=== PATIENT | female | born 1950 | race Caucasian/White ===

== ENCOUNTER 2016-10-07 07:43 | Emergency (ER) | payer OTHER ==
[~2016-10-07] VITALS: Ht 146.1 cm; Wt 71.7 kg
[~2016-10-07 07:43] MED LIST: ALEN70TA PO; ALPR1TAB2 PO; ENAL20TA46 PO; ESCI20TA PO; GEMF600T6 PO; TEMA30CA23 PO
[2016-10-07 07:50] VITALS: BP 160/88
--- NOTE | 2016-10-07 07:53 | NUR ---
PT TAKEN TO BED 5
--- NOTE | 2016-10-07 07:54 | NUR ---
65F BIB SELF C/O LEFT EYE IRRITATION X LAST NIGHT; PT DENIES VISION LOSS OR PAIN AT THIS TIME TO SITE; DENIES TRAUMA OR INJURY TO LEFT EYE; DENIES MEDICAL HX.DENIES N/V/D; SKIN IS PINK/WARM/DRY; AAOX4 WITH EVEN AND STEADY GAIT; LUNGS CLEAR BL; HR EVEN AND REGULAR; PT DENIES ANY FEVER, CP, SOB, OR COUGH AT THIS TIME; PATIENT STATES PAIN OF 0/10 AT THIS TIME; PATIENT POSITIONED FOR COMFORT; HOB ELEVATED; BEDRAILS UP X2; BED DOWN. ER MD MADE AWARE OF PT STATUS.
--- NOTE | 2016-10-07 08:02 | NUR ---
Dr. Conway evaluating patient at bedside.
[2016-10-07 08:21] VITALS: BP 160/88
--- NOTE | 2016-10-07 08:21 | NUR ---
Patient discharged with BP 139/69, PT DENIES ANY HEADACHE OR DIZZINESS AT THIS TIME; MD AWARE. Written and verbal after care instructions given and explained. Patient alert, oriented and verbalized understanding of instructions. Ambulatory with steady gait. All questions addressed prior to discharge. ID band removed. Patient advised to follow up with PMD. Rx of ERYTHROMYCIN 0.5% OPHTH OINT given. Patient educated on indication of medication including possible reaction and side effects. Opportunity to ask questions provided and answered.
== END 2016-10-07 08:21 | disposition home or self-care (01) ==
LOC: MED 07:43
DX: H00.015 Hordeolum externum left lower eyelid (principal); I10 Essential (primary) hypertension
CPT/HCPCS: 99283

== ENCOUNTER 2018-09-09 11:46 | Emergency (ER) | payer MEDICARE, OTHER ==
[~2018-09-09] VITALS: Ht 160 cm; Wt 65.8 kg
[2018-09-09 11:55] VITALS: BP 151/89
--- NOTE | 2018-09-09 12:17 | NUR ---
PT AMB TO BED 12
--- NOTE | 2018-09-09 12:19 | NUR ---
DAUGHTER AT BEDSIDE.
--- NOTE | 2018-09-09 12:30 | NUR ---
C/O ANXIETY, PER PT THE ANXIETY MEDICATIONS SHE TAKES ARE NOT WORKING FOR HER. PT STATES SHE HAS BEEN FEELING THE "ANXIETY ATTACK" SINCE LAST NIGHT. PT TAKES ALPRAZOLAM,TRAZADONE, ECITALOPRAM, & REMERON.
[2018-09-09] MEDS ORDERED: LORazepam 1 MG TAB PO ONE (12:45)
[2018-09-09 14:00] VITALS: BP 158/82
--- NOTE | 2018-09-09 14:00 | NUR ---
Patient discharged with v/s stable. Written and verbal after care instructions given and explained. Patient alert, oriented and verbalized understanding of instructions. Ambulatory with steady gait. All questions addressed prior to discharge. ID band removed. Patient advised to follow up with PMD. Rx of ATIVAN 0.5MG given. Patient educated on indication of medication including possible reaction and side effects. Opportunity to ask questions provided and answered.
== END 2018-09-09 14:00 | disposition home or self-care (01) ==
LOC: MED 11:46
DX: F41.9 Anxiety disorder, unspecified (principal); F31.9 Bipolar disorder, unspecified; I10 Essential (primary) hypertension; E07.9 Disorder of thyroid, unspecified; E78.00 Pure hypercholesterolemia, unspecified; Z79.899 Other long term (current) drug therapy
CPT/HCPCS: 81002; 99284

== ENCOUNTER 2018-10-17 19:10 | Inpatient (IN) | payer MEDICARE, OTHER ==
[~2018-10-17] VITALS: Ht 154.9 cm; Wt 60.8 kg
[2018-10-17 19:20] VITALS: BP 161/99
--- NOTE | 2018-10-17 19:20 | NUR ---
TO BED # 06 AMBULATORY WITH DAUGHTER
--- NOTE | 2018-10-17 19:42 | NUR ---
DR. ZAYAS EVALUATING PATIENT AT BEDSIDE.
[2018-10-17] MEDS ORDERED: LORazepam 2 MG/ML VIAL IM ONE (19:55)
--- NOTE | 2018-10-17 19:55 | NUR ---
67 Y/O F BIB DAUGHTER FOR SI. AAOX4. PER PT DAUGHTER "SHE NOT HERSELF LATELY. I FOUND HER WITH A CORD AROUND HER NECK. THEN SHE TRIED TO OVERDOSE ON ASPIRIN BUT I WAS ABLE TO TAKE IT FROM HER BEFORE SHE TOOK IT." PT LOST HER MOTHER A YEAR AGO, PT DAUGHTER STATED "SHE'S BEEN GETTING WORSE SINCE MOTHER'S DAY." PT HAS BEEN WITHOUT HER PSYCHIATRIC MEDICATION FOR 1 MONTH. PT STATED "I ALMOST TOOK ALOT OF ASPIRIN. I JUST DONT FEEL RIGHT." PT APPEARS ANXIOUS. DAUGTHER AT BEDSIDE. ERMD NOTIFIED. WILL CONTINUE TO MONITOR.
--- NOTE | 2018-10-17 20:01 | NUR ---
TELEPSYCH REQUEST SENT
--- NOTE | 2018-10-17 20:15 | NUR ---
PT CONTINOUSLY OUT OF BED AND TRYING TO AMBULATE IN THE HALLWAYS. REDIRECTED BACK TO BED.
--- NOTE | 2018-10-17 20:18 | NUR ---
SPOKE WITH DR. ANTONIO, TELEPSYCH TO PROVIDE INFORMATION REGARDING PT STATUS.
[2018-10-17 20:19] LABS: BASOPHILS % (AUTO) 0.1 % (0.0-2.0); EOSINOPHILS % (AUTO) 0.3 % (0.0-4.0); HEMATOCRIT 35.8 % (36-48); HEMOGLOBIN 11.9 g/dL (12.0-16.0); LYMPHOCYTES # (AUTO) 0.7 K/uL (2.5-16.5); LYMPHOCYTES % (AUTO) 8.7 % (20.5-51.1); MEAN CORPUSCULAR HEMOGLOBIN 28 pg (27-31); MEAN CORPUSCULAR HGB CONC 33 g/dL (33-37); MEAN CORPUSCULAR VOLUME 83.7 fL (80-94); MONOCYTES # (AUTO) 0.7 K/uL (0.8-1.0); MONOCYTES % (AUTO) 8.6 % (1.7-9.3); NEUTROPHILS # (AUTO) 6.3 K/uL (1.8-7.7); NEUTROPHILS % (AUTO) 82.3 % (42.2-75.2); PLATELET COUNT (AUTO) 409 K/uL (140-450); RED BLOOD CELL COUNT(AUTO) 4.28 MIL/uL (4.20-5.40); RED CELL DISTRIBUTION WIDTH 14.9 % (11.6-13.7); WHITE BLOOD COUNT (AUTO) 7.7 K/uL (4.8-10.8)
[2018-10-17 20:36] LABS: ANION GAP 13.6 (8-16); CARBON DIOXIDE 26.7 mmol/L (21-32); CHLORIDE 100 mmol/L (98-107); CREATININE 0.9 mg/dL (0.6-1.3); GFR ARICAN-AMERICAN 81 mL/min (>90); GLUCOSE 123 mg/dL (74-106); POTASSIUM 3.3 mmol/L (3.5-5.1); SODIUM SERUM 137 mmol/L (136-145); UREA NITROGEN, BLOOD 11 mg/dL (7-18)
--- NOTE | 2018-10-17 20:38 | NUR ---
SPOKE WITH DR. ANTONIO WHO IS RECOMMMENDING 5150 HOLD, ATIVAN PO 1MG FOR ANXIETY, RESTORIL 30MG PO, AND SEROQUEL 50MG PO FOR INSOMNIA. DR. ZAYAS MADE AWARE OF RECOMMENDATIONS.
[2018-10-17 20:41] LABS: ALBUMIN 3.9 g/dL (3.4-5.0); ASPARTATE AMINOTRANSFERASE 17 U/L (15-37); TOTAL BILIRUBIN 0.3 mg/dL (0.0-1.0)
--- NOTE | 2018-10-17 20:41 | NUR ---
[facility] PORTILLO CALLED TO INITATE 5150 HOLD.
[2018-10-17 20:43] LABS: ACETAMINOPHEN < 0.5 ug/ml (10-30); SALICYLATE < 2.8 mg/dL (2.8-20.0)
[2018-10-17] MEDS ORDERED: ALPRAZolam 0.5 MG TAB PO ONE (20:45)
--- NOTE | 2018-10-17 20:50 | NUR ---
[facility] ARRIVED. AT BEDSIDE WITH PT.
--- NOTE | 2018-10-17 21:00 | NUR ---
PT PLACED ON HOLD. EMT AT BEDSIDE FOR 1:1 MONITIORING. BEDRAILS X2 UP. BED IN LOWEST POSITION. WILL CONTINUE TO MONITOR.
[2018-10-17 21:21] LABS: APPEARANCE,URINE CLEAR (CLEAR); BILIRUBIN,URINE NEGATIVE (NEGATIVE); BLOOD, URINE NEGATIVE (NEGATIVE); COLOR,URINE YELLOW (YELLOW); LEUKOCYTE ESTERASE ,URINE TRACE (NEGATIVE); NITRITE, URINE NEGATIVE (NEGATIVE); UGLUCOSE NEGATIVE (NEGATIVE)
[2018-10-17 21:22] LABS: RBC,URINE 0-5 /HPF (0-5); WBC,URINE 0-5 /HPF (0-5)
[2018-10-17 21:30] LABS: BARBITURATE, URINE NEG. ng/ml (NEG <=200); BENZODIAZEPINE, URINE POS. ng/mL (NEG <=200); CANNABINOID, URINE NEG. ng/mL (NEG <=50); COCAINE, URINE NEG. ng/mL (NEG <=300); OPIATE, URINE NEG. ng/mL (NEG <=2000); PHENCYCLIDINE SCREEN,URINE NEG. ng/mL (NEG <=25)
[2018-10-17] MEDS ORDERED: QUEtiapine FUMARATE 25 MG TAB PO ONE (21:55)
--- NOTE | 2018-10-17 22:00 | NUR ---
PT STATED " CAN I GET SOMETHING TO SLEEP. I CAN'T SLEEP." DR. ZAYAS MADE AWARE.
[2018-10-17] MEDS ORDERED: QUEtiapine FUMARATE 25 MG TAB ONE (22:17)
[2018-10-17] MEDS ORDERED: TEMAZEPAM 15 MG CAP ONE (22:19)
[2018-10-17] MEDS ORDERED: traZODone 50 MG TAB PO ONE (22:35)
--- NOTE | 2018-10-18 00:15 | NUR ---
PT ASLEEP AT THIS TIME. VISIBLE CHEST RISE AND FALL NOTED. EMT AT BEDSIDE FOR 1:1 MONITORING. WILL CONTINUE TO MONITOR.
[2018-10-18] MEDS ORDERED: ZOLPIDEM 10 MG TAB PO ONE (01:45)
--- NOTE | 2018-10-18 01:50 | NUR ---
PT STATED "SHE IS FEELING ANXIOUS AND RESTLESS". DR. ZAYAS MADE AWARE.
[2018-10-18] MEDS ORDERED: ZOLPIDEM 5 MG TAB ONE (02:01)
[2018-10-18 02:35] VITALS: BP 144/71
--- NOTE | 2018-10-18 02:35 | NUR ---
Patient will be admitted to care of Dr. Goldsmith. Admited to [facility]. Will go to room 109B. Belongings list completed. VSS at time of transport. Report to LAURIE Merchant. transfer of care at this time.
--- NOTE | 2018-10-18 02:35 | NUR ---
PT ARRIVED TO UNIT VIA WHEELCHAIR BY ER NURSE. PT AMBULATED TO BED WITHOUT ASSISTANCE. RECEIVED REPORT FROM ER NURSE AT BEDSIDE. PT RESTING IN BED, AOX2- CONFUSED AND WILL ASK THE SAME QUESTION MORE THAN ONCE. ON ROOM AIR WITH RIGHT AC #20G-SL. DISCUSSED PLAN OF CARE AND PT VERBALIZED UNDERSTANDING. PT REFUSES TO GO BACK TO [facility] AND PREFERS TO GO TO [facility]. ORIENTED PT TO BEDROOM, BATHROOM AND PT VERBALIZED UNDERSTANDING. NO S/S OF RESPIRATORY DISTRESS OR DISCOMFORT NOTED AT THIS TIME. VITAL SIGNS TAKEN AND TOLERATED WELL. MRSA SWAB COLLECTED AND TOLERATED WELL. BED IN LOWEST POSITION, BED BREAKS ON, BOTH SIDE RAILS UP AND [address] BEDSIDE TABLE AND 1:[address] WILL CONTINUE TO MONITOR.
[2018-10-18] MEDS: LORazepam 2 MG/ML VIAL IVP PRN ×3 (02:52→13:10)
--- NOTE | 2018-10-18 02:52 | NUR ---
PT FEELING ANXIOUS. ATIVAN GIVEN AND TOLERATED WELL. NO S/S OF RESPIRATORY DISTRESS OR DISCOMFORT NOTED AT THIS TIME. WILL CONTINUE TO MONITOR.
--- NOTE | 2018-10-18 05:00 | NUR ---
PT SLEEPING IN BED AT THIS TIME. NO S/S OF RESPIRATORY DISTRESS OR DISCOMFORT NOTED AT THIS TIME. WILL CONTINUE TO MONITOR.
--- NOTE | 2018-10-18 07:24 | NUR ---
RECEIVED BEDSIDE REPORT FROM SILVERWARE ASSEMBLER NURSE FOR CONTINUITY OF CARE. PATIENT IS AWAKE AND WALKING INSIDE HER ROOM. PATIENT IS AAOX4. DENIES PAIN, BUT SHE STATED THAT SHE FEELS ANXIOUS AND RESTLESS. RESPIRATION EVEN AND UNLABORED ON RA. IV ON RAC 20G, CLEAN AND INTACT, SL PER MD ORDER. SKIN INTACT AND DRY. PATIENT IS ABLE TO AMBULATE AND CONTINENT. DISCUSSED PLAN OF CARE WITH PATIENT AND PATIENT VERBALIZED OK. BED IN LOW POSITION, SAFETY MEASURES IN PLACE. 1:1 SITTER BY BEDSIDE.
--- NOTE | 2018-10-18 07:32 | NUR ---
PATIENT COMPLAINED THAT SHE FEELS ANXIOUS AND RESTLESS, ADMINISTERED PRN ATIVAN PER MD ORDER AND PATIENT TOLERATED WELL. INSTRUCTED PATIENT TO STAY ON BED AND TRY TO GET SOME REST, PATIENT VERBALIZED OK. SAFETY MEASURES IN PLACE. BED IN LOW POSITION. 1:1 SITTER BY BEDSIDE.
[2018-10-18 08:00] VITALS: BP 150/70
--- NOTE | 2018-10-18 08:05 | NUR ---
CALLED PATIENT'S DAUGHTER RANDALL ON REGARDS OF PATIENT'S MEDS RECONSULT, PER RANDALL SHE HAS GIVEN THE FULL LIST TO DISPATCHER CHIEF OILLAURIE PYLE LAST NIGHT AND SHE IS IN A HURRY TO GO TO HER DOCTOR'S APPT AND NOT ABLE TO PROVIDE THE LIST OF MEDS AT THIS TIME.
--- NOTE | 2018-10-18 08:16 | NUR ---
PATIENT HAS BEEN SCREENED AND CATEGORIZED LOW NUTRITION RISK. PATIENT WILL BE SEEN WITHIN 7 DAYS OF ADMISSION. 10/24/[address]
--- NOTE | 2018-10-18 08:30 | NUR ---
CALLED ER AND PER ER, THEY DO NOT FIND PATIENT'S MEDS LIST. CALLED PATIENT'S DAUGHTER RANDALL BACK AND REQUEST FOR THE MEDS LIST. RANDALL WAS NOT HAPPY ABOUT MEDS LIST IS NOT FOUND. PER RANDALL, SHE IS RUNNING LATE FOR HER DR APPT. AND SHE SAID TO CALL HER MOTHER'S PHARMACY FOR HER MEDS OR GIVE HER A CALL BACK AFTER HER DR APPT LATER.
--- NOTE | 2018-10-18 08:36 | NUR ---
RECEIVED A CALL FROM [facility] SEMAJ [phone]. PER SEMAJ, THEY HAVE ACCEPTED PATIENT TO THEIR FACILITY AND UNDER THE CARE OF DR MARINA. SHE IS WORKING ON BED PLACEMENT CURRENTLY AND SHE WILL NOTIFY ME OR CM IF SHE HAS ANY UPDATE. PROVIDED CM'S EXTENSION NUMBER AND MY EXTENSION NUMBER.
--- NOTE | 2018-10-18 09:05 | NUR ---
RECEIVED A CALL BACK FROM DR CAMACHO AND REPORTED PATIENT'S CURRENT VITAL SIGNS AND CONDITION THAT PATIENT IS ANXIOUS AND FEELING RESTING, A DOSE OF PRN ATIVAN WAS GIVEN BUT IT DOESN'T HELP. DR CAMACHO GAVE VERBAL ORDER FOR ALPRAZOLAM 0.5 MG Q6H PRN AND CONSULT FOR PSYCHIATRIC DR KHOURY. READ BACK ORDER AND CONFIRMED WITH DR CAMACHO.
[2018-10-18] MEDS ORDERED: ALPRAZolam 0.5 MG TAB PO PRN ×2 (09:10→09:15)
--- NOTE | 2018-10-18 09:28 | NUR ---
PATIENT IS TALKING TO DAUGHTER VIKTORIA AT BEDSIDE. VIKTORIA PROVIDED THE MEDS LIST AND WILL DO MEDS RECON. NO SIGNS OF DISTRESS. SAFETY MEASURES IN PLACE. 1:1 SITTER BY BEDSIDE.
--- NOTE | 2018-10-18 10:15 | NUR ---
RECEIVED A CALL FROM [facility] [address], [place] [phone] THAT SHE HAS COMMUNICATED WITH SS NINA AND SHE IS PENDING FOR SS TO GET BACK TO HER. SEMAJ HAS PROVIDED THE FOLLOWING INFOR THAT PATIENT IS GOING TO BED 706 BED [address] UNDER THE CARE OF DR MCNAMARA. INFORMED THE INFOR TO NINA IN SS AND PER NINA, THEY WILL TAKE CARE THE PAPER WORK AND NOTIFY ME WHEN TRANSPORTATION HAS BEEN SET UP.
--- NOTE | 2018-10-18 10:16 | NUR ---
PATIENT IS ANXIOUS AND WALKING AROUND IN HER ROOM. SHE COMPLAINED OF RESTLESS. ADMINISTERED PRN APRAZOLAM PER MD ORDER, PATIENT TOLERATED WELL. SAFETY MEASURES IN PLACE. 1:1 SITTER BY BEDSIDE.
--- NOTE | 2018-10-18 11:27 | NUR ---
SPOKE TO RANDALL YANEZ PATIENTS DAUGHTER AT [phone]. SHE IS AWARE THAT THE PATIENT IS GOING TO [facility] TODAY AROUND 1200.
--- NOTE | 2018-10-18 11:30 | NUR ---
CALLED [phone] TO [facility] AND GAVE FULL REPORT TO IRVIN, ANSWERED ALL IRVIN'S QUESTIONS. IRVIN VERBALIZED AND ACKNOWLEDGED THAT PATIENT IS GOING TO TRANSFER TO HIS FACILITY AND UNDER THE CARE OF DR MCNAMARA IN ROOM 706 BED 1. PROVIDED CALL BACK NUMBER TO IRVIN FOR FURTHER QUESTION.
[2018-10-18] MEDS ORDERED: SYN.05 PO (11:39)
--- NOTE | 2018-10-18 11:45 | NUR ---
INFORMED DR CAMACHO THAT PATIENT'S BP IS 183/78, PER DR CAMACHO HE WILL ORDER BP MED AND PUT IN THE D/C ORDER ONCE HE IS DONE WITH AM ROUNDING.
[2018-10-18] MEDS ORDERED: TRAZ-343 PO (11:47)
[2018-10-18] MEDS ORDERED: CLON0.1T15 PO (11:47)
[2018-10-18] MEDS ORDERED: FURO-572 PO (11:47)
[2018-10-18] MEDS ORDERED: ENAL-197 PO (11:50)
[2018-10-18] MEDS ORDERED: GEMF-61 PO (11:50)
--- NOTE | 2018-10-18 12:15 | NUR ---
DR CAMACHO IS ASSESSING AND TALKING TO PATIENT AT BEDSIDE. NO SIGNS OF DISTRESS NOTED. BED IN LOW POSITION. 1:1 SITTER BY BEDSIDE.
[2018-10-18] MEDS ORDERED: cloNIDine 0.1 MG TAB PO SCH (12:49)
--- NOTE | 2018-10-18 13:11 | NUR ---
PATIENT COMPLAINED OF ANXIOUSNESS AND RESTLESS, ADMINISTERED PRN ATIVAN PER MD ORDER, PATIENT TOLERATED WELL. INSTRUCTED PATIENT TO GET SOME REST ON BED, AND PATIENT SAID, " I WILL TRY TO." BED IN LOW POSITION, SAFETY MEASURES IN PLACE. 1:1 SITTER AT BEDSIDE.
--- NOTE | 2018-10-18 14:01 | NUR ---
CALLED [facility] AT [phone] THEY SAID PATIENT WILL BE PICKED UP IN 30 MINS, HANNAH AWARE. THEY SAID THEY NEED AUTHORIZATION NUMBER, TOLD HILARY AND SHE SAID SHE WILL CALL THE INSURANCE
--- NOTE | 2018-10-18 14:20 | NUR ---
DC Planning Called [facility], ph [phone], transferred call to ABBIE [place]. Per Halle [facility] w auth #[id number], gave to info [employer]
--- NOTE | 2018-10-18 14:25 | NUR ---
PATIENT IS RESTING ON BED AT THIS TIME. NO SIGNS OF DISTRESS NOTE. BED IN LOW POSITION AND SAFETY MEASURES IN PLACE. 1:1 SITTER AT BEDSIDE.
[2018-10-18 14:26] VITALS: BP 130/70
--- NOTE | 2018-10-18 14:40 | NUR ---
DISCHARGE INSTRUCTION PROVIDED TO PATIENT AT BEDSIDE. EDUCATED PATIENT ON SELF-CARE, MEDICATION REGIMEN, SIDE EFFECTS. PATIENT VERBALIZED OK. ANSWERED ALL PATIENT'S QUESTIONS. CALLED SECURITY AND RETURNED ALL PATIENT'S BELONGINGS. RETURNED PATIENT'S MEDS LIST AND PAPER WORK PER DAUGHTER VIKTORIA'S REQUEST. REMOVED ALL ARM BANDS AND D/C IV, IV CANNULA INTACT, NO BLEEDING AT IV SITE. PATIENT IS GOING TO TRANSFER AT THIS TIME ACCOMPANIED BY [facility] PERSONNEL. PATIENT IS IN STABLE CONDITION.
[2018-10-18] MEDS ORDERED: ESCITALOPRAM 20 MG TAB PO SCH (17:00)
[2018-10-18] MEDS ORDERED: TEMAZEPAM 15 MG CAP PO SCH (21:00)
== END 2018-10-18 14:40 | DRG 881 ==
LOC: MED 19:10 → MTU 10-18 02:14
PROVIDERS: ADMIT Internal Medicine Pulmonary Disease; ATTEND Internal Medicine Pulmonary Disease
DX: F32.9 Major depressive disorder, single episode, unspecified (principal); R45.851 Suicidal ideations; F41.9 Anxiety disorder, unspecified; F41.0 Panic disorder [episodic paroxysmal anxiety]; I10 Essential (primary) hypertension; E78.00 Pure hypercholesterolemia, unspecified
CPT/HCPCS: 36415; 80053; 80305; 81001; 85025; 87081; 96372; 99285; G0480; G0482; J2060